=== PATIENT | female | born 1960 ===

== ENCOUNTER 2019-01-02 09:22 | Outpatient (CLI) | payer BC | END 2019-01-02 09:23 | disposition home or self-care (01) | LOC: C.MAMMO 09:22 | DX: Z12.31 Encounter for screening mammogram for malignant neoplasm of breast (principal) ==

== ENCOUNTER 2019-02-27 13:51 | Outpatient (CLI) | payer BC | END 2019-02-27 13:52 | disposition home or self-care (01) | LOC: C.PAT 13:51 | DX: R10.9 Unspecified abdominal pain (principal) ==

== ENCOUNTER 2019-03-09 06:03 | Observation (INO) | payer BC ==
[2019-02-27 14:14] VITALS: BMI 29.7
[2019-03-09] MEDS ORDERED: Midazolam 2 MG/2 ML VIAL ONE (07:22)
[2019-03-09] MEDS ORDERED: Propofol 10 mg/ml Inj (20 ML) ONE (07:22)
[2019-03-09] MEDS ORDERED: Lidocaine/Epinephrine 1% 1:100000 10 ML IJ ONE (07:55)
[2019-03-09] MEDS ORDERED: Bupivacaine 0.25% 20 ML INJ IJ ONE (07:55)
[2019-03-09] MEDS ORDERED: ceFAZolin 1 gm in NS 2 GM/200 ML BAG IVPB ONE (08:16)
[2019-03-09] MEDS ORDERED: metroNIDAZOLE IV 500 mg/100 ml 500 MG/100 ML BAG ONE (08:16)
[2019-03-09] MEDS ORDERED: Sodium Chloride 0.9% 40 ML IV ONE (09:43)
[2019-03-09] MEDS ORDERED: Bupivacaine Liposomal Inj 20 ml INFIL ONE (10:00)
[2019-03-09] MEDS ORDERED: Rocuronium 10 mg/ml (5 ml) ONE (10:53)
[2019-03-09] MEDS ORDERED: Neostigmine 1:1000 (1 mg/ml) Inj ONE (10:53)
--- NOTE | 2019-03-09 12:10 | PCM.SURG1 ---
Surgeon's Initial Post Op Note - Surgeon's Notes Surgeon: Dr. Steiner Office Receptionist: Collins PGY2, Sonali MALDONADO Type of Anesthesia: General Endo, Local Anesthesia Administered By: Alondra SHANKAR Pre-Operative Diagnosis: Mesenteric Mass Operative Findings: Mesenteric Mass, with extensive adhesions Post-Operative Diagnosis: Mesenteric Mass Operation Performed: Diagnostic laparoscopy, robotic excision of mesenteric mass, lysis of extensive adhesions Specimen/Specimens Removed: Mesenteric Mass Estimated Blood Loss: EBL {In ML}: 20 Blood Products Given: N/A Drains Used: No Drains Post-Op Condition: Good Date of Surgery/Procedure: 03/09/19 Time of Surgery/Procedure: 12:09
[2019-03-09] MEDS: HYDROmorphone 0.5 mg/0.5 ml ISec IVP PRN ×4 (12:25→12:58)
[2019-03-09] MEDS: Docusate-Senna 50 mg-8.6 mg Tab PO SCH (18:17)
[2019-03-09] MEDS: Oxycodone/Acetaminophen 5/325 mg Tab PO PRN (18:17)
[2019-03-09] MEDS ORDERED: Rosuvastatin Calcium 2.5 mg Tab PO SCH (22:00)
--- NOTE | 2019-03-09 23:23 | OP ---
PROCEDURE DATE: 03/09/2019 PREOPERATIVE DIAGNOSES: 1. Mesenteric mass approximately 5 cm size, possible gastrointestinal stromal tumor, possible desmoid tumor. 2. Abdominal pain. POSTOPERATIVE DIAGNOSES: 1. Mesenteric mass of 6 cm size. 2. Extensive peritoneal adhesions. PROCEDURES: 1. Diagnostic laparoscopy. 2. Robotic excision of the mesenteric mass, 6 cm size. 3. Robotic mobilization of the right colon. 4. Robotic extensive enterolysis and lysis of adhesions. 5. Laparoscopic bilateral TAP block placement. SURGEON: Anthony Steiner MD BILINGUAL SALES REPRESENTATIVE: YOCASTA Gautam and Anastacio Guadalupe, PGY-3 resident. TYPE OF ANESTHESIA: General endotracheal tube anesthesia. ESTIMATED BLOOD LOSS: Around 10 mL. DRAIN: None. PATHOLOGY: The large mesenteric mass was sent for the pathology. COMPLICATIONS: None. INTRAOPERATIVE FINDINGS: The patient had a mesenteric mass in the right lower quadrant in the mesentery of the cecum as well as ascending colon, and on intraoperative steps, this is a 58-year-old female who was diagnosed with mesenteric mass and the patient also had bloating and abdominal pain. The patient was consented for diagnostic laparoscopy and robotic excision of the mesenteric mass. DESCRIPTION OF PROCEDURE: The patient was brought to the OR, placed supine on operating table. After induction of anesthesia, the abdomen was prepped and draped in the usual sterile fashion. An infraumbilical transverse incision was made. Using open technique, peritoneal cavity was entered. Pneumo was created. Another three 8-mm ports were placed in the suprapubic region and left upper quadrant and lower quadrant. The robot was brought in. The patient was found to have extensive adhesions due to the previous operation and the transverse colon was stuck to the upper abdomen, and during the diagnostic laparoscopy, the large mesentery mass was identified, and it was attached to the mesentery of the ileum, cecum, as well as ascending colon and after that the grasper and dissector were introduced and the mass was marked circumferentially, and after that slow dissection was done. The cecum, ascending colon, as well as the ileum was firmly adhesed to the mass and enterolysis was done. The mass was in the mesentery and there was a blood supply to the mass that was also excised with blunt and sharp dissection and the mass was completely excised. Before the starting of the dissection of the mass the right side of the colon was mobilized completely in order to prevent any damage to the ascending colon. After complete excision of the mass, proper hemostasis was achieved. Intraoperatively Firefly was used. Ileocecal artery appeared to be intact. There was a good blood supply to the ileum, cecum, as well as the ascending colon. After proper hemostasis, suction and irrigation of the upper abdomen as well as the dissection area was done and all the fluid was taken out. Bilateral TAP block was given. A 30 mL of Exparel was injected into the transverse abdominis muscle plane area bilaterally and after proper TAP block, the umbilical incision was extended and the specimen was sent off the table for the pathology. There was proper hemostasis in each and every part of the procedure. The umbilical incision was closed in multiple layers, the fascia with #1 looped PDS as well as interrupted Prolene sutures and subcutaneous with 2-0 Vicryl and skin with a 4-0 Monocryl. Dry sterile dressing was applied. The patient tolerated the procedure well. Count of the instrument and gauze was correct. There were no apparent complications. The patient was extubated in OR and sent to the postanesthesia care unit in stable condition. Anthony Steiner MD
[2019-03-10 02:26] VITALS: RESP 20
[2019-03-10 07:09] LABS: BASO % 0.2 % (0.0-2.0); EOS % 0.5 % (0.0-4.0); HEMOGLOBIN 12.5 g/dL (11.0-16.0); LYMPH # 1.9 K/uL (1.0-4.3); LYMPH % 22.7 % (20.0-40.0); MEAN CELL VOLUME 89.5 fL (81.0-99.0); MEAN CORPUSCULAR HEMOGLOBIN 30.8 pg (27.0-31.0); MEAN CORPUSCULAR HGB CONC 34.5 g/dL (33.0-37.0); MEAN PLATELET VOLUME 7.7 fL (7.2-11.7); MONO # 0.6 K/uL (0.0-0.8); MONO % 7.3 % (0.0-10.0); NEUT # 5.9 K/uL (1.8-7.0); NEUT % 69.3 % (50.0-75.0); RBC 4.06 Mil/uL (3.80-5.20)
[2019-03-10 07:25] LABS: WHITE BLOOD COUNT 8.5 K/uL (4.8-10.8)
[2019-03-10 07:34] LABS: ALB/GLOB RATIO 1.4 (1.0-2.1); ALBUMIN 3.9 g/dL (3.5-5.0); ALT/SGPT 28 U/L (9-52); AST/SGOT 36 U/L (14-36); BLOOD UREA NITROGEN 7 mg/dL (7-17); CALCIUM 9.1 mg/dl (8.6-10.4); GFR NON-AFRICAN AMERICAN > 60
[2019-03-10] MEDS ORDERED: POLYETHYLENE GLYCOL 3350 17 GM/Dose PACKET PO SCH (10:00)
[2019-03-10] MEDS ORDERED: Pantoprazole 40 mg EC Tab PO SCH (10:00)
[2019-03-10] MEDS: Docusate-Senna 50 mg-8.6 mg Tab PO SCH ×2 (10:24→18:40)
[2019-03-10] MEDS: Oxycodone/Acetaminophen 5/325 mg Tab PO PRN (13:50)
[2019-03-10 15:52] VITALS: BP 146/85; PULSE 94; TEMP 98.1
[2019-03-10 16:37] VITALS: O2SAT 99
--- NOTE | 2019-03-10 17:38 | CP.PCM.DIS ---
Provider - Provider Date of Admission: 03/09/19 16:40 Attending physician: nAthony Steiner MD Primary care physician: Jeannette Rosas MD Time Spent in preparation of Discharge (in minutes): 45 Hospital Course - Lab Results Lab Results: Most Recent Lab Values WBC 8.5 K/uL (4.8-10.8) D 03/10/19 06:42 RBC 4.06 Mil/uL (3.80-5.20) 03/10/19 06:42 Hgb 12.5 g/dL (11.0-16.0) 03/10/19 06:42 Hct 36.3 % (34.0-47.0) 03/10/19 06:42 MCV 89.5 fL (81.0-99.0) 03/10/19 06:42 MCH 30.8 pg (27.0-31.0) 03/10/19 06:42 MCHC 34.5 g/dL (33.0-37.0) 03/10/19 06:42 RDW 13.0 % (11.5-14.5) 03/10/19 06:42 Plt Count 263 K/uL (130-400) 03/10/19 06:42 MPV 7.7 fL (7.2-11.7) 03/10/19 06:42 Neut % (Auto) 69.3 % (50.0-75.0) 03/10/19 06:42 Lymph % (Auto) 22.7 % (20.0-40.0) 03/10/19 06:42 Mcminn % (Auto) 7.3 % (0.0-10.0) 03/10/19 06:42 Eos % (Auto) 0.5 % (0.0-4.0) 03/10/19 06:42 Baso % (Auto) 0.2 % (0.0-2.0) 03/10/19 06:42 Neut # (Auto) 5.9 K/uL (1.8-7.0) 03/10/19 06:42 Lymph # (Auto) 1.9 K/uL (1.0-4.3) 03/10/19 06:42 Mcminn # (Auto) 0.6 K/uL (0.0-0.8) 03/10/19 06:42 Eos # (Auto) 0.0 K/uL (0.0-0.7) 03/10/19 06:42 Baso # (Auto) 0.0 K/uL (0.0-0.2) 03/10/19 06:42 Sodium 135 mmol/L (132-148) 03/10/19 06:49 Potassium 3.6 mmol/L (3.6-5.2) 03/10/19 06:49 Chloride 102 mmol/L (98-107) 03/10/19 06:49 Carbon Dioxide 25 mmol/L (22-30) 03/10/19 06:49 Anion Gap 12 (10-20) 03/10/19 06:49 BUN 7 mg/dL (7-17) 03/10/19 06:49 Creatinine 0.6 mg/dL (0.7-1.2) L 03/10/19 06:49 Est GFR ( Amer) > 60 03/10/19 06:49 Est GFR (Non-Af Amer) > 60 03/10/19 06:49 Random Glucose 95 mg/dL (65-105) D 03/10/19 06:49 Calcium 9.1 mg/dl (8.6-10.4) 03/10/19 06:49 Phosphorus 3.1 mg/dL (2.5-4.5) 03/10/19 06:49 Magnesium 1.9 mg/dL (1.6-2.3) 03/10/19 06:49 Total Bilirubin 0.7 mg/dL (0.2-1.3) 03/10/19 06:49 AST 36 U/L (14-36) 03/10/19 06:49 ALT 28 U/L (9-52) 03/10/19 06:49 Alkaline Phosphatase 73 U/L (38-126) 03/10/19 06:49 Total Protein 6.7 g/dL (6.3-8.3) 03/10/19 06:49 Albumin 3.9 g/dL (3.5-5.0) 03/10/19 06:49 Globulin 2.8 gm/dL (2.2-3.9) 03/10/19 06:49 Albumin/Globulin Ratio 1.4 (1.0-2.1) 03/10/19 06:49 Blood Type O POSITIVE 03/09/19 07:15 Antibody Screen Negative 03/09/19 07:15 - Hospital Course Hospital Course: Mrs. Glass is a 58 yr old female with PMH HLD, GERD and mild arthritis who presented to [facility] for Robotic removal of a Mesenteric mass. Pt underwent diagnostic laparoscopy, robotic excision of mesenteric mass and extensive lysis of adhesions. The patient was kept overnight for further monitoring following surgery. Patient recovered well and tolerated her diet. She was discharged with specific instruction regarding follow up and expressed understanding of these instructions - Date & Time of H&P Date of H&P: 03/10/19 Time of H&P: 07:45 Discharge Exam - Head Exam Head Exam: ATRAUMATIC, NORMOCEPHALIC - Eye Exam Eye Exam: EOMI - Respiratory Exam Respiratory Exam: NORMAL BREATHING PATTERN - Cardiovascular Exam Cardiovascular Exam: REGULAR RHYTHM - GI/Abdominal Exam GI & Abdominal Exam: Soft. absent: Distended, Guarding, Tenderness Additional comments: operative dressings in place with no strikethrough - Neurological Exam Neurological exam: Alert, Oriented x3 - Psychiatric Exam Psychiatric exam: Normal Affect, Normal Mood - Skin Skin Exam: Dry, Intact, Normal Color, Warm Additional comments: operative dressings in place clean and dry Discharge Plan - Discharge Medications Prescriptions: Docusate Sodium/Sennosides A [Senokot S 50 MG-8.6 MG] 1 tab PO BID #60 tab oxyCODONE/Acetaminophen [Percocet 5/325 mg Tab] 1 tab PO Q4H PRN #20 tab PRN Reason: Pain, Moderate (4-7) Polyethylene Glycol 3350 [Miralax] 17 gm PO DAILY #30 powd.pack - Follow Up Plan Condition: GOOD Disposition: HOME/ ROUTINE Instructions: Polyethylene Glycol 3350, Colectomy, Laparoscopic Surgery, Oxycodone and Acetaminophen, Docusate and Senna, Managing Pain After Surgery Additional Instructions: Please follow up with Dr. Steiner in his office within 7-10 days. Please call to make appointment. Please do not remove your dressings for 5 days, please do not get dressings wet for 5 days. please do not remove steri strips under dressings these will fall off on their own. please no swimming, baths or hot tubs for 2-3 weeks. please do not lift more than 15 lbs for the next 6-8 weeks. If any new or concerning symptoms arise please return to the nearest ER for medical attention and notify Dr. Steiner's office. Referrals: Jeannette Rosas MD [Primary Care Provider] - Anthony Steiner MD [Staff Provider] -
== END 2019-03-10 19:35 | disposition home or self-care (01) ==
LOC: C.SDS 06:03 → C.9S 16:40 → C.6T 17:51
PROVIDERS: ADMIT Surgery Surgical Critical Care; ATTEND Surgery Surgical Critical Care
DX: R19.07 Generalized intra-abdominal and pelvic swelling, mass and lump (principal); R10.9 Unspecified abdominal pain; K66.0 Peritoneal adhesions (postprocedural) (postinfection); E78.5 Hyperlipidemia, unspecified; K21.9 Gastro-esophageal reflux disease without esophagitis
CPT/HCPCS: 36415; 49321; 80053; 83735; 84100; 85025; 86850; 86900; 88307; G0378; J0360; J0690; J1170; J1885; J2001; J2250; J2405; J2704; J2710; J3010